=== PATIENT | female | born 1995 | race African-American/Black ===

== ENCOUNTER 2017-04-11 06:11 | Emergency (ER) | payer MEDICAID ==
[~2017-04-11] VITALS: Ht 160 cm; Wt 80.0 kg
[~2017-04-11 06:11] MED LIST: cogentin; risperdal
[2017-04-11 07:02] LABS: CLARITY URINE CLEAR (CLEAR); COLOR URINE YELLOW (YELLOW); GLUCOSE URINE NEGATIVE (NEGATIVE); KETONES URINE NEGATIVE (NEGATIVE); LEUKOCYTE ESTERASE URINE NEGATIVE (NEGATIVE); NITRITE URINE NEGATIVE (NEGATIVE); OCCULT BLOOD URINE NEGATIVE (NEGATIVE); PH URINE 6.5 (4.5-8.0); PROTEIN URINE NEGATIVE (NEGATIVE); SPECIFIC GRAVITY URINE 1.021 (1.005-1.030); UROBILINOGEN URINE 0.2 E.U./dL (0.2-1.0)
[2017-04-11 07:11] LABS: BASOPHILS % 0.6 % (0.0-2.0); EOSINOPHILS % 0.2 % (0.0-5.0); HEMATOCRIT. 36.7 % (36.0-48.0); HEMOGLOBIN. 12.2 g/dL (12.0-16.0); LYMPHOCYTES % 20.4 % (20.0-50.0); MEAN CORPUSCULAR HEMOGLOBIN 29.5 pg (28.0-32.0); MEAN CORPUSCULAR VOLUME 88.3 fL (81.0-99.0); MEAN PLATELET VOLUME 8.6 fl (7.4-10.4); MONOCYTES % 5.1 % (2.0-8.0); NEUTROPHILS % 73.7 % (40.0-76.0); PLATELET 274 x1000/uL (130-400); RED BLOOD CELL COUNT 4.15 mill/uL (4.2-5.4)
[2017-04-11 07:15] LABS: *AMPHETAMINES SCREEN URINE NEGATIVE (NEGATIVE); *BARBITURATES SCREEN URINE NEGATIVE (NEGATIVE); *BENZODIAZEPINES SCREEN URINE NEGATIVE (NEGATIVE); *COCAINE SCREEN URINE NEGATIVE (NEGATIVE); CANNABINOID URINE SCREEN NEGATIVE (NEGATIVE); METHADONE URINE SCREEN NEGATIVE (NEGATIVE); OPIATES URINE SCREEN NEGATIVE (NEGATIVE); PHENCYCLIDINE URINE SCREEN NEGATIVE (NEGATIVE)
[2017-04-11 07:18] LABS: CARBON DIOXIDE 25 mEq/L (21-32); CHLORIDE 108 mEq/L (98-107)
[2017-04-11 07:27] LABS: ETHANOL BLOOD < 10 mg/dL
[2017-04-11 07:42] LABS: HCG SCREEN NEGATIVE
[2017-04-11 18:45] VITALS: BP 120/78
== END 2017-04-11 19:03 ==
LOC: ER 06:11
DX: T43.292A Poisoning by other antidepressants, intentional self-harm, initial encounter (principal); F20.9 Schizophrenia, unspecified; F31.9 Bipolar disorder, unspecified; Y92.89 Other specified places as the place of occurrence of the external cause
CPT/HCPCS: 36415; 80053; 80305; 81003; 84703; 85025; 99285; G0482

== ENCOUNTER 2018-12-19 10:50 | Observation (INO) | payer MEDICARE ==
[2018-12-19] MEDS ORDERED: HALO10TA13 MT (12:25)
== END 2018-12-19 12:40 | disposition home or self-care (01) ==
LOC: 8 EST LDRP 10:50
PROVIDERS: ADMIT Obstetrics & Gynecology; ATTEND Obstetrics & Gynecology
DX: O62.9 Abnormality of forces of labor, unspecified (principal); Z3A.00 Weeks of gestation of pregnancy not specified
CPT/HCPCS: G0378 ×2

== ENCOUNTER 2018-12-19 14:28 | Emergency (ER) | payer MEDICARE ==
[~2018-12-19] VITALS: Ht 162.6 cm; Wt 85.9 kg
[~2018-12-19 14:28] MED LIST changes: +HALO10TA13 MT
[2018-12-19 15:08] VITALS: BP 131/71
== END 2018-12-19 21:40 | disposition left against medical advice (07) ==
LOC: ER 14:28
DX: Z53.21 Procedure and treatment not carried out due to patient leaving prior to being seen by health care provider (principal)
CPT/HCPCS: 99281

== ENCOUNTER 2019-01-11 21:44 | Observation (INO) | payer MEDICAID ==
[~2019-01-11] VITALS: Ht 162.6 cm; Wt 86.2 kg
[~2019-01-11 21:44] MED LIST changes: -cogentin; -risperdal
[2019-01-12] MEDS ORDERED: PREN1TAB78 MT (00:45)
== END 2019-01-12 00:55 | disposition home or self-care (01) ==
LOC: 8 EST LDRP 21:44
PROVIDERS: ADMIT Obstetrics & Gynecology; ATTEND Obstetrics & Gynecology
DX: O36.8130 Decreased fetal movements, third trimester, not applicable or unspecified (principal); Z3A.33 33 weeks gestation of pregnancy
CPT/HCPCS: 76805; 76818; 99281; G0378

== ENCOUNTER 2019-04-29 22:10 | Emergency (ER) | payer MEDICAID ==
[~2019-04-29] VITALS: Ht 172.7 cm; Wt 77.0 kg
[~2019-04-29 22:10] MED LIST changes: +PREN1TAB78 MT
[2019-04-30 04:10] VITALS: BP 131/75
== END 2019-04-30 04:20 | disposition home or self-care (01) ==
LOC: ER 22:10
DX: Z00.00 Encounter for general adult medical examination without abnormal findings (principal); J45.909 Unspecified asthma, uncomplicated; F31.9 Bipolar disorder, unspecified; F20.9 Schizophrenia, unspecified; R10.2 Pelvic and perineal pain; Z97.5 Presence of (intrauterine) contraceptive device
CPT/HCPCS: 99283